=== PATIENT | female | born 1950 | race Caucasian/White ===

== ENCOUNTER 2021-03-09 14:41 | Inpatient (IN) | payer MEDICARE, OTHER ==
[~2021-03-09] VITALS: Ht 162.6 cm; Wt 113.4 kg
[~2021-03-09 14:41] MED LIST: AMLO-213 PO; BENA20TA9 PO; HYDR1TAB PO; LEVO100T9 PO; ZOLP10TA2 PO
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
[2021-03-09] MEDS ORDERED: PANTOPRAZOLE 80 MG in IV NS 0.9% 100 ML IV ONE (15:00)
[2021-03-09] MEDS ORDERED: MORPHINE SULFATE INJ 2 MG/ML DISP.SYRIN IV ONE (15:00)
[2021-03-09] MEDS ORDERED: ONDANSETRON HCL/PF 4 MG/2 ML VIAL IVP ONE (15:00)
[2021-03-09] MEDS ORDERED: IV NS 0.9% 1,000 ML BAG IV ONE (15:00)
--- NOTE | 2021-03-09 15:07 | NUR ---
POC BS 121; JUDY RICARDO AWARE
[2021-03-09] MEDS ORDERED: ONDANSETRON HCL/PF 4 MG/2 ML VIAL ONE (15:11)
[2021-03-09] MEDS ORDERED: MORPHINE SULFATE INJ 4 MG/ML DISP.SYRIN ONE (15:12)
[2021-03-09] MEDS ORDERED: PANTOPRAZOLE 40 MG VIAL IV ONE (16:00)
[2021-03-09] MEDS ORDERED: PANTOPRAZOLE 40 MG VIAL ONE (16:02)
[2021-03-09 16:49] LABS: BASOPHILS % (AUTO) 0.7 % (0.0-2.0); EOSINOPHILS % (AUTO) 1.7 % (0.0-6.0); HEMATOCRIT 28 % (33-45); HEMOGLOBIN 9.2 g/dL (11.5-14.8); LYMPHOCYTES # (AUTO) 1.6 K/uL (0.8-4.8); LYMPHOCYTES % (AUTO) 25.5 % (20.0-44.0); MEAN CORPUSCULAR HGB CONC 33 g/dl (31.0-36.0); MEAN CORPUSCULAR VOLUME 94 fL (82-100); MONOCYTES # (AUTO) 0.8 K/uL (0.1-1.30); MONOCYTES % (AUTO) 12.3 % (2.0-12.0); NEUTROPHILS # (AUTO) 3.7 K/uL (1.8-8.9); NEUTROPHILS % (AUTO) 59.8 % (43.0-81.0); PLATELET COUNT (AUTO) 214 K/uL (150-450); RED BLOOD CELL COUNT(AUTO) 3.04 MIL/uL (4.0-5.2); WHITE BLOOD COUNT (AUTO) 6.3 K/uL (4.3-11.0)
[2021-03-09] MEDS ORDERED: CARV6.252 PO (17:07)
[2021-03-09] MEDS ORDERED: LOSA100T31 PO (17:07)
[2021-03-09] MEDS ORDERED: LEVO125T8 PO (17:07)
[2021-03-09 17:11] LABS: CALCIUM, SERUM 8.6 mg/dL (8.5-10.1); POTASSIUM 3.5 mmol/L (3.5-5.1)
[2021-03-09 17:18] LABS: ALBUMIN 2.5 g/dL (3.4-5.0); BILIRUBIN,DIRECT 0.1 mg/dL (0.0-0.2); BILIRUBIN,TOTAL 0.2 mg/dL (0.2-1.0); TOTAL PROTEIN, SERUM 6.8 g/dL (6.4-8.2)
[2021-03-09 18:01] LABS: BAND % (MANUAL) 1 % (0.0-5.0); EOSINOPHILS % (MANUAL) 2 % (0-4); LYMPHOCYTES % (MANUAL) 28 % (16-48); MONOCYTES % (MANUAL) 7 % (0-11.0); NEUTROPHILS % (MANUAL) 62 (42-76)
--- NOTE | 2021-03-09 18:02 | NUR ---
CALLED NURSING SUP REGARDING PT BED
--- NOTE | 2021-03-09 18:23 | NUR ---
EGD PROCEDURE BY DR SHERMAN AT 1850
[2021-03-09] MEDS ORDERED: ANESTHESIA TRAY IN PYXIS 1 EA TRAY MC ONE (18:58)
[2021-03-09] MEDS ORDERED: LABETALOL 20 MG/4 ML VIAL IV PRN (19:00)
[2021-03-09] MEDS ORDERED: ONDANSETRON HCL/PF 4 MG/2 ML VIAL IVP PRN (19:00)
[2021-03-09] MEDS ORDERED: ACETAMINOPHEN 325 MG TABLET PO PRN (19:00)
--- NOTE | 2021-03-09 19:04 | NUR ---
PT TAKEN TO SURGERY FOR EGD; SURGICAL CONSENT, BLOOD TRANSFUSION, AND ANESTHESIA CONSENT FOR SIGNED. PT VERBALIZED UNDERSTANDING.
[2021-03-09 20:00] VITALS: BP 106/50
[2021-03-09] MEDS ORDERED: NYSTATIN OINT 100000 UNIT/G 15 GM TUBE TP SCH ×2 (20:00→20:45)
--- NOTE | 2021-03-09 20:09 | NUR ---
PT ARRIVED FROM OR. VS STABLE PER OR NURSE. PT AOx4, ABLE TO MAKE NEEDS KNOWN. ON NC AND TOLERATING WELL. NO SOB NOTED. NO S/SX OF RESPIRATORY DISTRESS NOTED. SAFETY PRECAUTIONS IN PLACE: BED IN LOWEST, LOCKED POSITION, SIDERAILS UPx2, AND BRAKES ON. TABLE AND CALL LIGHT WITHIN REACH. WILL CONTINUE TO MONITOR.
--- NOTE | 2021-03-09 20:41 | NUR ---
AWAITING CALL BACK FROM TIMMY LARA TO GIVE REPORT
[2021-03-09] MEDS: IV NS 0.9% 1,000 ML IV PRN (21:46)
[2021-03-09] MEDS: SUCRALFATE 1 G/10 ML UDC GT SCH (21:46)
[2021-03-09] MEDS: DOXYCYCLINE 100 MG in IV D5W 100 ML IV SCH (21:46)
[2021-03-09] MEDS: MORPHINE SULFATE INJ 2 MG/ML DISP.SYRIN IV PRN (22:00)
[2021-03-10] VITALS: BP 120/67
[2021-03-10 01:49] LABS: HEMOGLOBIN 7.4 g/dL (11.5-14.8)
[2021-03-10] MEDS: MORPHINE SULFATE INJ 2 MG/ML DISP.SYRIN IV PRN ×4 (03:57→20:00)
--- NOTE | 2021-03-10 03:58 | NUR ---
ADMINSTERED MORPHINE FOR PAIN PER MD ORDER. VS WNL. WILL CONTINUE TO MONITOR.
[2021-03-10 04:44] LABS: BASOPHILS % (AUTO) 0.9 % (0.0-2.0); HEMATOCRIT 25 % (33-45); HEMOGLOBIN 8.2 g/dL (11.5-14.8); LYMPHOCYTES # (AUTO) 1.2 K/uL (0.8-4.8); LYMPHOCYTES % (AUTO) 27.8 % (20.0-44.0); MEAN CORPUSCULAR HGB CONC 33 g/dl (31.0-36.0); MEAN CORPUSCULAR VOLUME 92 fL (82-100); MONOCYTES # (AUTO) 0.6 K/uL (0.1-1.30); NEUTROPHILS # (AUTO) 2.4 K/uL (1.8-8.9); NEUTROPHILS % (AUTO) 56.3 % (43.0-81.0); PLATELET COUNT (AUTO) 163 K/uL (150-450); RED BLOOD CELL COUNT(AUTO) 2.69 MIL/uL (4.0-5.2); WHITE BLOOD COUNT (AUTO) 4.3 K/uL (4.3-11.0)
[2021-03-10 04:59] LABS: ALANINE AMINOTRANSFERASE 9 U/L (12-78); ALBUMIN 2.1 g/dL (3.4-5.0); ALKALINE PHOSPHATASE 70 U/L (46-116); ASPARTATE AMINOTRANSFERASE 15 U/L (15-37); BILIRUBIN,TOTAL 0.4 mg/dL (0.2-1.0); CARBON DIOXIDE 28 mmol/L (21-32); CHLORIDE 100 mmol/L (98-107); GLUCOSE 106 mg/dL (74-106); MAGNESIUM 1.6 mg/dL (1.8-2.4); PHOSPHORUS 3.7 mg/dL (2.5-4.9); SODIUM SERUM 133 mmol/L (136-145); TOTAL PROTEIN, SERUM 5.8 g/dL (6.4-8.2); UREA NITROGEN, BLOOD 30 mg/dL (7-18)
--- NOTE | 2021-03-10 07:22 | NUR ---
RN OPENING NOTES PT AWAKE IN BED. AOx4, ABLE TO MAKE NEEDS KNOWN. ON NC 2L/MIN AND TOLERATING WELL. NO SOB NOTED. NO S/SX OF RESPIRATORY DISTRESS NOTED. TELE MONITOR DETECTS ALL NEEDS MET. PT KEPT CLEAN AND DRY. TREATED PAIN THROUGHOUT SHIFT. SAFETY PRECAUTIONS IN PLACE: BED IN LOWEST, LOCKED POSITION, SIDERAILS UPx2, AND BRAKES ON. TABLE AND CALL LIGHT WITHIN REACH. WILL ENDORSE TO ONCOMING SHIFT FOR ALBERTO. Addendum: 03/10/21 at 0728 by EDISON GAO RN RN CLOSING NOTES
--- NOTE | 2021-03-10 07:30 | NUR ---
BANDER HAND OPENING NOTES PATIENT AOx4, ABLE TO MAKE NEEDS KNOWN. ON NC 2L/MIN AND TOLERATING WELL. NO SOB NOTED. NO S/SX OF RESPIRATORY DISTRESS NOTED. TELE MONITOR . SAFETY PRECAUTIONS IN PLACE: BED IN LOWEST, LOCKED POSITION, SIDERAILS UPx2, AND BRAKES ON. TABLE AND CALL LIGHT WITHIN REACH. WILL CONTINUE TO MONITOR.
[2021-03-10] MEDS: SUCRALFATE 1 G/10 ML UDC GT SCH ×4 (08:06→20:41)
[2021-03-10] MEDS: LEVOTHYROXINE SODIUM 125 MCG TABLET PO SCH (08:06)
[2021-03-10 08:36] VITALS: BP 120/78
--- NOTE | 2021-03-10 09:41 | NUR ---
WOUND CARE CONSULT: PT PRESENTS WITH RASHES, REDNESS AND OPEN SKIN SECONDARY TO MOISTURE, PRESENT ON ADMISSION. RECOMMENDATIONS MADE FOR SKIN PROTECTION. DISCUSSED WITH NURSING STAFF. PT PLACED ON ISOFLEX LOW AIRLOSS BED. IN AGREEMENT WITH PLAN OF CARE. PT USING BEDPAN AT THIS TIME. Addendum: 03/10/21 at 0943 by JULIETTE LEWIS WNDNU Amended: Links added.
[2021-03-10] MEDS ORDERED: Z GUARD REMEDY 4 OZ OINT TP PRN (10:00)
[2021-03-10] MEDS: CARVEDILOL 6.25 MG TABLET PO SCH ×2 (10:17→17:32)
[2021-03-10] MEDS: AMLODIPINE BESYLATE 10 MG TABLET PO SCH (10:17)
[2021-03-10] MEDS: LOSARTAN POTASSIUM 50 MG TABLET PO SCH (10:18)
[2021-03-10] MEDS: PANTOPRAZOLE 40 MG VIAL IV SCH ×2 (10:19→18:31)
[2021-03-10] MEDS ORDERED: MAGNESIUM OXIDE 400 MG TABLET PO ONE (11:00)
[2021-03-10] MEDS: Z GUARD REMEDY 4 OZ OINT TP SCH (14:00)
[2021-03-10] MEDS: CLOTRIMAZOLE 1% 15 GM TUBE TP SCH ×2 (14:00→17:35)
[2021-03-10] MEDS: DOXYCYCLINE 100 MG in IV D5W 100 ML IV SCH ×2 (14:23→20:41)
[2021-03-10] MEDS: LORAZEPAM INJ 2 MG/ML VIAL IV PRN ×2 (15:57→22:01)
[2021-03-10 16:26] VITALS: BP_SYST 116; BP_SYST 120; BP_DIAS 78; BP_DIAS 85
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
[2021-03-10] MEDS ORDERED: MAGNESIUM HYDROXIDE 30 ML UDC PO PRN (17:00)
[2021-03-10] MEDS ORDERED: BISACODYL SUPP (10 MG) 10 MG/SUPP.RECT SUPP.RECT RC PRN (17:00)
[2021-03-10] MEDS: SENNOSIDES/DOCUSATE SODIUM 1 TAB TABLET PO SCH (17:34)
--- NOTE | 2021-03-10 18:30 | NUR ---
MOUTHPIECE MAKER CLOSING NOTES PATIENT AOx4, ABLE TO MAKE NEEDS KNOWN. ON NC 2L/MIN AND TOLERATING WELL. NO SOB NOTED. NO S/SX OF RESPIRATORY DISTRESS NOTED. TELE MONITOR .ALL DUE MEDS GIVEN ORDERED.NO DISTRESS NOTED. SAFETY PRECAUTIONS IN PLACE: BED IN LOWEST, LOCKED POSITION, SIDERAILS UPx2, AND BRAKES ON. TABLE AND CALL LIGHT WITHIN REACH. WILL ENDORSE INCOMING SHIFT FOR ALBERTO.
--- NOTE | 2021-03-10 19:39 | NUR ---
RN OPENING NOTES PT ASLEEP IN BED, AWAKENS TO VERBAL STIMULI. AOx4, ABLE TO MAKE NEEDS KNOWN. ON NC 2L/MIN AND TOLERATING WELL. NO SOB NOTED. NO S/SX OF RESPIRATORY DISTRESS NOTED. TELE MONITOR DETECTS SINUS RHYTHM AND SINUS TACHYCARDIA WITH RATE OF 100S. SAFETY PRECAUTIONS IN PLACE: BED IN LOWEST, LOCKED POSITION, SIDERAILS UPx2, AND BRAKES ON. TABLE AND CALL LIGHT WITHIN REACH. WILL CONTINUE TO MONITOR.
[2021-03-10] MEDS: IV NS 0.9% 1,000 ML IV PRN (20:00)
--- NOTE | 2021-03-10 20:01 | NUR ---
ADMINISTERED MORPHINE FOR PAIN PER MD ORDER. VS WNL. WILL CONTINUE TO MONITOR.
[2021-03-10 20:36] LABS: HEMOGLOBIN 7.2 g/dL (11.5-14.8)
[2021-03-10 21:04] VITALS: BP 99/57
--- NOTE | 2021-03-10 22:01 | NUR ---
ADMINISTERED ATIVAN FOR WITHDRAWALS PER MD ORDER. VS WNL. WILL CONTINUE TO MONITOR.
[2021-03-11] VITALS (7 sets, daily range): BP systolic 87–123; BP diastolic 50–68
[2021-03-11] MEDS: MORPHINE SULFATE INJ 2 MG/ML DISP.SYRIN IV PRN ×6 (00:34→22:00)
--- NOTE | 2021-03-11 00:34 | NUR ---
ADMINISTERED MORPHINE FOR PAIN PER MD ORDER. VS WNL. WILL CONTINUE TO MONITOR.
[2021-03-11 04:09] LABS: BASOPHILS % (AUTO) 0.7 % (0.0-2.0); EOSINOPHILS % (AUTO) 4.1 % (0.0-6.0); HEMATOCRIT 23 % (33-45); HEMOGLOBIN 7.5 g/dL (11.5-14.8); LYMPHOCYTES # (AUTO) 0.6 K/uL (0.8-4.8); LYMPHOCYTES % (AUTO) 17.7 % (20.0-44.0); MEAN CORPUSCULAR HGB CONC 33 g/dl (31.0-36.0); MEAN CORPUSCULAR VOLUME 93 fL (82-100); MONOCYTES # (AUTO) 0.5 K/uL (0.1-1.30); MONOCYTES % (AUTO) 13.4 % (2.0-12.0); NEUTROPHILS # (AUTO) 2.2 K/uL (1.8-8.9); NEUTROPHILS % (AUTO) 64.1 % (43.0-81.0); PLATELET COUNT (AUTO) 155 K/uL (150-450); RED BLOOD CELL COUNT(AUTO) 2.45 MIL/uL (4.0-5.2); WHITE BLOOD COUNT (AUTO) 3.4 K/uL (4.3-11.0)
[2021-03-11 04:22] LABS: CALCIUM, SERUM 8.1 mg/dL (8.5-10.1); CARBON DIOXIDE 29 mmol/L (21-32); CHLORIDE 100 mmol/L (98-107); CREATININE 1.1 mg/dL (0.6-1.3); GLUCOSE 129 mg/dL (74-106); MAGNESIUM 1.4 mg/dL (1.8-2.4); PHOSPHORUS 4.1 mg/dL (2.5-4.9); POTASSIUM 4.5 mmol/L (3.5-5.1); SODIUM SERUM 133 mmol/L (136-145); UREA NITROGEN, BLOOD 25 mg/dL (7-18)
--- NOTE | 2021-03-11 05:45 | NUR ---
ADMINISTERED MORPHINE FOR PAIN PER MD ORDER. VS WNL. WILL CONTINUE TO MONITOR.
--- NOTE | 2021-03-11 07:06 | NUR ---
RN CLOSING NOTES PT AWAKE IN BED. AOx4, ABLE TO MAKE NEEDS KNOWN. ON NC 2L/MIN AND TOLERATING WELL. NO SOB NOTED. NO S/SX OF RESPIRATORY DISTRESS NOTED. TELE MONITOR DETECTS ALL NEEDS MET. PT KEPT CLEAN AND DRY. TREATED PAIN THROUGHOUT SHIFT. SAFETY PRECAUTIONS IN PLACE: BED IN LOWEST, LOCKED POSITION, SIDERAILS UPx2, AND BRAKES ON. TABLE AND CALL LIGHT WITHIN REACH. WILL ENDORSE TO ONCOMING SHIFT FOR ALBERTO.
--- NOTE | 2021-03-11 07:30 | NUR ---
FIBER TECHNICIAN NOTES PT IN BED, AWAKE, ALERT AND ORIENTED, WITH COMPLAINT OF GENERALIZED BODY PAIN, NOT IN DISTRESS, IV FLUIDS INFUSING WELL, CALL LIGHT AMLA COX, NEEDS ATTENDED.
[2021-03-11] MEDS: LOSARTAN POTASSIUM 50 MG TABLET PO SCH (09:00)
[2021-03-11] MEDS: CARVEDILOL 6.25 MG TABLET PO SCH ×2 (09:00→17:00)
[2021-03-11] MEDS: AMLODIPINE BESYLATE 10 MG TABLET PO SCH (09:00)
[2021-03-11] MEDS: PANTOPRAZOLE 40 MG VIAL IV SCH ×2 (09:37→17:23)
[2021-03-11] MEDS: SUCRALFATE 1 G TABLET PO SCH ×4 (09:38→21:43)
[2021-03-11] MEDS: SENNOSIDES/DOCUSATE SODIUM 1 TAB TABLET PO SCH (09:38)
[2021-03-11] MEDS: LEVOTHYROXINE SODIUM 125 MCG TABLET PO SCH (09:38)
[2021-03-11] MEDS ORDERED: MAGNESIUM OXIDE 400 MG TABLET PO SCH (10:00)
[2021-03-11] MEDS ORDERED: MAGNESIUM OXIDE 400 MG TABLET PO ONE (10:00)
[2021-03-11] MEDS: Z GUARD REMEDY 4 OZ OINT TP SCH (10:01)
[2021-03-11] MEDS: CLOTRIMAZOLE 1% 15 GM TUBE TP SCH ×2 (10:01→17:29)
[2021-03-11] MEDS: DOXYCYCLINE 100 MG in IV D5W 100 ML IV SCH ×2 (10:10→20:18)
[2021-03-11] MEDS ORDERED: IV NS 0.9% 500 ML IV ONE (10:30)
[2021-03-11] MEDS: SERTRALINE HCL 25 MG TABLET PO SCH (11:32)
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
[2021-03-11] MEDS ORDERED: IV NS 0.9% 250 ML IV ONE (13:00)
[2021-03-11] MEDS ORDERED: SERT25TA5 PO (13:00)
[2021-03-11] MEDS ORDERED: PANT40TA2 PO (13:00)
[2021-03-11] MEDS ORDERED: DOXY150T3 PO (13:00)
[2021-03-11] MEDS ORDERED: SUCR1TAB31 PO (13:00)
[2021-03-11] MEDS ORDERED: CLOT15CR35 TP (13:00)
--- NOTE | 2021-03-11 13:15 | NUR ---
AMENA Consult: Royer APS Report Intake #[id number]
--- NOTE | 2021-03-11 19:30 | NUR ---
TRUCK REPAIR SUPERVISOR NOTES PT IN BED, RESTING, ALERT AND ORIENTED, PAIN MEDS GIVEN FOR PAIN MANAGEMENT, IV FLUIDS INFUSING WELL, CALL LIGHT WITHIN REACH, SEEN BY DR. CASTILLO TODAY, DISCHARGE ORDER GIVEN, PT REFUSED TO BE DISCHARGED, STATED THAT SHE STILL FEELS WEAK AND FEELING DEPRESSED, MADE AWARE, TIRE VULCANIZER INFORMED, PER CM, PT APPEALED HER DISCHARGE.
[2021-03-11] MEDS: IV NS 0.9% 1,000 ML IV PRN (20:13)
[2021-03-11] MEDS: LORAZEPAM INJ 2 MG/ML VIAL IV PRN (21:04)
[2021-03-12] VITALS (8 sets, daily range): BP systolic 93–143; BP diastolic 60–85
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
[2021-03-12 05:14] LABS: BASOPHILS % (AUTO) 0.6 % (0.0-2.0); EOSINOPHILS % (AUTO) 3.9 % (0.0-6.0); HEMATOCRIT 25 % (33-45); LYMPHOCYTES # (AUTO) 0.6 K/uL (0.8-4.8); LYMPHOCYTES % (AUTO) 18.8 % (20.0-44.0); MEAN CORPUSCULAR HGB CONC 33 g/dl (31.0-36.0); MEAN CORPUSCULAR VOLUME 94 fL (82-100); MONOCYTES # (AUTO) 0.5 K/uL (0.1-1.30); MONOCYTES % (AUTO) 15.4 % (2.0-12.0); NEUTROPHILS # (AUTO) 1.9 K/uL (1.8-8.9); NEUTROPHILS % (AUTO) 61.3 % (43.0-81.0); PLATELET COUNT (AUTO) 164 K/uL (150-450); RED BLOOD CELL COUNT(AUTO) 2.61 MIL/uL (4.0-5.2); WHITE BLOOD COUNT (AUTO) 3.1 K/uL (4.3-11.0)
[2021-03-12 05:19] LABS: CALCIUM, SERUM 8.4 mg/dL (8.5-10.1); CARBON DIOXIDE 27 mmol/L (21-32); CHLORIDE 103 mmol/L (98-107); GLUCOSE 108 mg/dL (74-106); MAGNESIUM 1.6 mg/dL (1.8-2.4); PHOSPHORUS 3.5 mg/dL (2.5-4.9); POTASSIUM 4.3 mmol/L (3.5-5.1); SODIUM SERUM 136 mmol/L (136-145); UREA NITROGEN, BLOOD 21 mg/dL (7-18)
[2021-03-12] MEDS: MORPHINE SULFATE INJ 2 MG/ML DISP.SYRIN IV PRN ×3 (05:39→22:39)
[2021-03-12] MEDS: SUCRALFATE 1 G TABLET PO SCH ×4 (07:30→22:12)
[2021-03-12] MEDS: LEVOTHYROXINE SODIUM 125 MCG TABLET PO SCH (07:30)
--- NOTE | 2021-03-12 08:00 | NUR ---
RN Opening Note Patient received in bed, AO x 4, able to responds physical stimuli. Skin is warm to touch, keep clean/dry, intact IV site. Respiratory even and unlabored on room air. Kept elevated HOB for ensure air/aspiration precaution and remains lower position of the bed. call light within reach, will continue to monitor.
[2021-03-12] MEDS: SERTRALINE HCL 25 MG TABLET PO SCH (08:34)
[2021-03-12] MEDS: SENNOSIDES/DOCUSATE SODIUM 1 TAB TABLET PO SCH (08:34)
[2021-03-12] MEDS: PANTOPRAZOLE 40 MG VIAL IV SCH ×2 (08:34→17:20)
[2021-03-12] MEDS: CARVEDILOL 6.25 MG TABLET PO SCH ×2 (08:34→17:00)
[2021-03-12] MEDS: LOSARTAN POTASSIUM 50 MG TABLET PO SCH (08:37)
[2021-03-12] MEDS: AMLODIPINE BESYLATE 10 MG TABLET PO SCH (08:45)
--- NOTE | 2021-03-12 08:45 | NUR ---
Patient takes losartan and Coreg, bp[ 133/85, will hold Norvasc at this time.
[2021-03-12] MEDS: CLOTRIMAZOLE 1% 15 GM TUBE TP SCH ×2 (09:00→17:20)
[2021-03-12] MEDS: Z GUARD REMEDY 4 OZ OINT TP SCH (09:58)
[2021-03-12] MEDS: DOXYCYCLINE 100 MG in IV D5W 100 ML IV SCH ×2 (10:01→22:40)
[2021-03-12 10:23] LABS: BAND % (MANUAL) 1 % (0.0-5.0); EOSINOPHILS % (MANUAL) 2 % (0-4); LYMPHOCYTES % (MANUAL) 16 % (16-48); MONOCYTES % (MANUAL) 11 % (0-11.0); MYELOCYTES % 1 % (0-0); NEUTROPHILS % (MANUAL) 69 (42-76)
[2021-03-12] MEDS: Magnesium 1GM/D5W 100ML PREMIX 100 ML IV SCH ×2 (10:32→11:30)
--- NOTE | 2021-03-12 18:00 | NUR ---
RN Closing Note Patient in bed, resting. No distress observed. Skin is warm to touch. Respiratory even and unlabored. Will endorse tool specialist.
--- NOTE | 2021-03-12 19:35 | NUR ---
RN NOTES RECEIVED PATIENT AWAKE, A/OX2-3, SR ON TELE MONITOR HR-89, IV IS INFILTRATED, DENIES PAIN, NO SOB, CALL LIGHT WITHIN REACH, SIDERAILSUPX2, WILL CONTINUE TO MONITOR
[2021-03-12 20:34] LABS: HEMOGLOBIN 7.3 g/dL (11.5-14.8)
--- NOTE | 2021-03-12 22:40 | NUR ---
RN NOTES COMPLAINED OF GENERAL PAIN- MORPHINE 2MG IV GIVEN ORDERED
[2021-03-13] VITALS: BP 117/72
[2021-03-13] MEDS: IV NS 0.9% 1,000 ML IV PRN ×2 (00:48→17:57)
[2021-03-13 04:00] VITALS: BP 128/63
--- NOTE | 2021-03-13 05:40 | NUR ---
RN NOTES COMPLAINED OF GENERALIZED PAIN- MORPHINE 2 MG IV GIVEN ORDERED, V/S STABLE
[2021-03-13] MEDS: MORPHINE SULFATE INJ 2 MG/ML DISP.SYRIN IV PRN ×4 (05:45→20:29)
--- NOTE | 2021-03-13 06:20 | NUR ---
RN NOTES AWAKE, MORNING CARE RENDERED, CALL LIGHT WITHIN REACH, SIDERAILSUPX2,. PT. NEEDS ATTENDED
[2021-03-13 08:00] VITALS: BP 135/71
--- NOTE | 2021-03-13 08:00 | NUR ---
RN Opening Note Patient received in bed, AO x 3-4, able to responds physical stimuli. Skin is warm to touch, keep clean/dry, intact IV site. Respiratory even and unlabored on room air. No distress observed. Kept elevated HOB for ensure air/aspiration precaution and remains lower position of the bed. call light within reach, will continue to monitor.
[2021-03-13 08:12] LABS: HEMOGLOBIN 7.5 g/dL (11.5-14.8)
[2021-03-13] MEDS: PANTOPRAZOLE 40 MG VIAL IV SCH ×2 (09:21→16:27)
[2021-03-13] MEDS: SERTRALINE HCL 25 MG TABLET PO SCH (09:22)
[2021-03-13] MEDS: SENNOSIDES/DOCUSATE SODIUM 1 TAB TABLET PO SCH (09:22)
[2021-03-13] MEDS: LEVOTHYROXINE SODIUM 125 MCG TABLET PO SCH (09:22)
[2021-03-13] MEDS: LOSARTAN POTASSIUM 50 MG TABLET PO SCH (09:22)
[2021-03-13] MEDS: SUCRALFATE 1 G TABLET PO SCH ×4 (09:22→22:17)
[2021-03-13] MEDS: CARVEDILOL 6.25 MG TABLET PO SCH ×2 (09:24→16:40)
[2021-03-13] MEDS: DOXYCYCLINE 100 MG in IV D5W 100 ML IV SCH ×2 (09:24→20:08)
[2021-03-13] MEDS: AMLODIPINE BESYLATE 10 MG TABLET PO SCH (09:24)
[2021-03-13] MEDS: Z GUARD REMEDY 4 OZ OINT TP SCH (09:25)
[2021-03-13] MEDS: CLOTRIMAZOLE 1% 15 GM TUBE TP SCH ×2 (09:25→16:44)
[2021-03-13 13:37] LABS: HEMOGLOBIN 8.2 g/dL (11.5-14.8)
[2021-03-13 16:00] VITALS: BP 106/48
--- NOTE | 2021-03-13 18:30 | NUR ---
RN Closing Note Patient is resting in bed. No distress observed, respiratory even and unlabored on room air. Skin is warm to touch, keep clean/dry. Intact IV site site. Kept elevated HOB for ensure airway and aspiration precaution, Also lower position of the bed for safety. Call light within reach, all needs met. will endorse hotel night auditor.
--- NOTE | 2021-03-13 19:10 | NUR ---
TELE/RN OPENING NOTE RECEIVED PATIENT RESTING IN BED. AWAKE, ALERT AND ORIENTED X 4. ABLE TO MAKE NEEDS KNOWN. C/O GENERALIZED PAIN 09/30 - WILL ADMINISTER PRN PAIN MEDICATION WHEN DUE. CONTINUES ON ROOM AIR WITH NO S/SX OF RESPIRATORY DISTRESS NOTED. IV ACCESS TO LEFT FOREARM #18G INTACT AND PATENT. CONTINUES ON IVF AND IV ABX. TELE MONITOR IN PLACE WITH CURRENT READING SR HR 80. CALL LIGHT WITHIN REACH. ASPIRATION, FALL AND SAFETY PRECAUTIONS MAINTAINED. WILL CONTINUE TO MONITOR.
[2021-03-13 20:00] VITALS: BP 105/46
[2021-03-13] MEDS: LORAZEPAM INJ 2 MG/ML VIAL IV PRN (22:26)
[2021-03-14] VITALS: BP 111/51
[2021-03-14] MEDS: MORPHINE SULFATE INJ 2 MG/ML DISP.SYRIN IV PRN ×3 (01:40→10:33)
[2021-03-14 04:00] VITALS: BP 108/54
--- NOTE | 2021-03-14 06:10 | NUR ---
TELE/RN CLOSING NOTE PATIENT CURRENTLY RESTING IN BED. AWAKE, ALERT AND ORIENTED X 4. ABLE TO MAKE NEEDS KNOWN. DENIES PAIN AT THIS TIME. CONTINUES ON O2 2L VIA NC WITH NO S/SX OF RESPIRATORY DISTRESS NOTED. IV ACCESS TO LEFT FOREARM #18G INTACT AND PATENT. CONTINUES ON IVF AND IV ABX. TELE MONITOR IN PLACE WITH CURRENT READING SR/1ST DEGREE HB. CALL LIGHT WITHIN REACH. ASPIRATION, FALL AND SAFETY PRECAUTIONS MAINTAINED. WILL ENDORSE PLAN OF CARE TO ONCOMING SHIFT.
--- NOTE | 2021-03-14 07:45 | NUR ---
CARRY OUT CLERK OPENING NOTES RECEIVED Pt RESTING IN BED. Pt IS AWAKE, ALERT AND ORIENTEDx3. Pt IS ON ROOM AIR AND TOLERATING WELL AT THIS TIME. NO SIGNS OF RESPIRATORY DISTRESS NOTED. IV ACCESS TO LEFT FOREARM #18g AND IS INTACT AND PATENT. SAFETY MEASURES ARE IN PLACE: BED IS LOCKED AND IN CLOSEST POSITION, SIDE RAILS UP x3, BED SIDE TABLE AND CALL LIGHT ARE WITHIN REACH. WILL CONTINUE TO MONITOR THROUGHOUT TH SHIFT.
[2021-03-14] MEDS: AMLODIPINE BESYLATE 10 MG TABLET PO SCH (09:00)
[2021-03-14] MEDS: SERTRALINE HCL 25 MG TABLET PO SCH (09:04)
[2021-03-14] MEDS: PANTOPRAZOLE 40 MG VIAL IV SCH (09:04)
[2021-03-14] MEDS: SENNOSIDES/DOCUSATE SODIUM 1 TAB TABLET PO SCH (09:04)
[2021-03-14] MEDS: SUCRALFATE 1 G TABLET PO SCH (09:04)
[2021-03-14] MEDS: LEVOTHYROXINE SODIUM 125 MCG TABLET PO SCH (09:04)
[2021-03-14] MEDS: Z GUARD REMEDY 4 OZ OINT TP SCH (09:04)
[2021-03-14 09:06] VITALS: BP 109/61
[2021-03-14] MEDS: LOSARTAN POTASSIUM 50 MG TABLET PO SCH (09:06)
[2021-03-14] MEDS: CARVEDILOL 6.25 MG TABLET PO SCH (09:06)
[2021-03-14] MEDS: CLOTRIMAZOLE 1% 15 GM TUBE TP SCH (09:09)
[2021-03-14] MEDS: DOXYCYCLINE 100 MG in IV D5W 100 ML IV SCH (09:09)
--- NOTE | 2021-03-14 09:35 | NUR ---
TRIAL LAWYER NOTES: BP MED AMLODIPINE NOT ADMINISTERED AT Pt RECEIVED LOSARTAN AND COREG. Pt'S BP IS 109/61.
--- NOTE | 2021-03-14 11:46 | NUR ---
PROPELLANT ASSEMBLER NOTES: DISCHARGE PICTURES Pt HAS PICTURES OF SACRUM, BREAST, AND GROIN AREA IN CHART FROM WHEN ADMITTED. AFTER ASKING A FEW TIMES TO GET UPDATED PICTURES PRIOR TO DISCHARGE, Pt REFUSED TO TAKE UPDATED PICTURES FOR HER CHART.
[2021-03-14] MEDS ORDERED: PANTOPRAZOLE 40 MG TABLET.DR PO SCH (17:00)
== END 2021-03-14 12:30 | disposition home or self-care (01) | DRG 378 ==
LOC: ER 14:42 → TRANSITION 18:10 → TELE 20:28
PROVIDERS: ADMIT Internal Medicine; ATTEND Registered Nurse
PROC: 0DB68ZX Excision of Stomach, Via Natural or Artificial Opening Endoscopic, Diagnostic (ICD-10-PCS; principal; 2021-03-09)
DX: K25.4 Chronic or unspecified gastric ulcer with hemorrhage (principal); D62 Acute posthemorrhagic anemia; E87.2 Acidosis; K29.71 Gastritis, unspecified, with bleeding; N61.0 Mastitis without abscess; F10.129 Alcohol abuse with intoxication, unspecified; E03.9 Hypothyroidism, unspecified; E66.01 Morbid (severe) obesity due to excess calories; F41.9 Anxiety disorder, unspecified; I10 Essential (primary) hypertension; K43.9 Ventral hernia without obstruction or gangrene; M79.3 Panniculitis, unspecified; K21.9 Gastro-esophageal reflux disease without esophagitis; Y90.5 Blood alcohol level of 100-119 mg/100 ml; F32.A Depression, unspecified
CPT/HCPCS: 36415; 71045-TC; 80048-TC; 80053-TC; 80076-TC; 82962-TC; 83605-TC; 83690-TC; 83735-TC; 84100-TC; 85025-TC; 85027-TC; 85730-TC; 86850-TC; 88305-TC; 88313-TC; 88342; A6253; C9113; C9803; G0378; G0480; J2060; J2270; J2405; J2704; J3475; J3490; J7030; J7040; J7050; J7060